=== PATIENT | male | born 1950 | race Caucasian/White ===

== ENCOUNTER 2016-11-07 08:00 | Outpatient (CLI) | payer MEDICARE | END 2016-11-07 08:01 | disposition home or self-care (01) | DX: R73.09 Other abnormal glucose (principal); E78.5 Hyperlipidemia, unspecified; Z79.899 Other long term (current) drug therapy; I10 Essential (primary) hypertension; R97.20 Elevated prostate specific antigen [PSA] ==

== ENCOUNTER 2017-01-20 13:03 | Outpatient (CLI) | payer MEDICARE | END 2017-01-20 13:04 | disposition home or self-care (01) | DX: R06.83 Snoring (principal) | CPT/HCPCS: 99213; G0463 ==

== ENCOUNTER 2017-04-30 01:07 | Emergency (ER) | payer MEDICARE ==
[2017-04-30 01:45] LABS: BASOPHILS % (AUTO) 0.4 %; EOSINOPHILS # (AUTO) 0.5 10^3/uL (0.0-0.7); EOSINOPHILS % (AUTO) 4.8 %; HGB - HEMOGLOBIN 14.5 g/dL (14.0-18.0); LYMPHOCYTES # (AUTO) 1.5 10^3/uL (1.5-3.5); LYMPHOCYTES % (AUTO) 14.7 %; MEAN CORPUSCULAR HGB CONC 33.8 g/dL (32.0-36.0); MEAN CORPUSCULAR VOLUME 88.8 fL (80.0-94.0); MONOCYTES # (AUTO) 0.4 10^3/uL (0.0-1.0); MONOCYTES % (AUTO) 4.4 %; NEUTROPHILS # (AUTO) 7.7 10^3/uL (1.5-6.6); NEUTROPHILS % (AUTO) 75.7 %; RED BLOOD COUNT 4.84 10^6/uL (4.70-6.10); RED CELL DISTRIBUTION WIDTH 12.7 % (12.0-15.0); UNCORRECTED WHITE BLOOD COUNT 10.1 x10^3/uL; WHITE BLOOD COUNT 10.1 x10^3/uL (4.8-10.8)
[2017-04-30 01:58] LABS: ALBUMIN/GLOBULIN RATIO 1.3 (1.0-2.2); BILIRUBIN,TOTAL 0.6 mg/dL (0.2-1.0); CALCIUM 9.8 mg/dL (8.5-10.3); CREATININE 0.9 mg/dL (0.6-1.2); POTASSIUM 4.3 mmol/L (3.5-5.0); TOTAL PROTEIN 7.3 g/dL (6.7-8.2)
[2017-04-30 02:42] LABS: BILIRUBIN,URINE NEGATIVE (NEGATIVE); PH,URINE 5.5 PH (5.0-7.5)
[2017-04-30 02:43] LABS: UA CHARGE (STRIP ONLY) YES; UR CULTURE IF IND NOT INDICATED
[2017-04-30] MEDS ORDERED: SIMETHICONE CHEW 80 MG TABLET PO STA (02:49)
--- NOTE | 2017-04-30 02:50 | ED Physician Documentation ---
PD HPI ABD PAIN - Stated complaint Stated Complaint: ABD BLOATING,PAIN - Chief complaint Chief Complaint: Abd Pain - History obtained from History obtained from: Patient, Family - History of Present Illness Timing - onset: Enter time (1899), Yesterday Timing - duration: Hours Timing - details: Gradual onset, Still present Quality: Cramping, Pain Location: All over / everywhere Radiation: Left flank Improved by: Laying still Worsened by: Moving, Position, Palpation Associated symptoms: Nausea, Other (diaphoresis) Similar symptoms before: Has not had sx before Recently seen: Not recently seen - Additional information Additional information: 66-year-old male was in his usual state of health today when at dinner he ate to [employer] beer floats a can of all of this and some leftover ribs. He began to have some bloating of his abdomen tightness to the abdomen and pain. He did end up with some diaphoresis associated with the pain and he was not able to control the pain his pain is now nearly resolved and he has passed gas and has had bowel movement as well.He is uncertain as to whether he has any history of lactose intolerance but he does note that he ate more ice cream than he usually does. Review of Systems Constitutional: denies: Fever Eyes: denies: Decreased vision Ears: denies: Ear pain Nose: denies: Rhinorrhea / runny nose, Congestion Throat: denies: Sore throat Cardiac: denies: Chest pain / pressure, Palpitations Respiratory: denies: Dyspnea, Cough GI: reports: Abdominal Pain, Abdominal Swelling, Nausea. denies: Vomiting, Constipation : denies: Dysuria, Frequency Skin: denies: Rash Musculoskeletal: denies: Neck pain, Back pain, Extremity pain Neurologic: denies: Generalized weakness, Focal weakness, Numbness PD PAST MEDICAL HISTORY - Past Medical History Past Medical History: Yes Cardiovascular: Hypertension, Deep vein thrombosis, Pulmonary embolism Neuro: None - Past Surgical History Past Surgical History: Yes - Allergies Allergies/Adverse Reactions: Allergies Allergy/AdvReac Type Severity Reaction Status Date / Time naproxen Allergy Anaphylaxis Verified 04/30/17 01:26 Statins Allergy Anaphylaxis Uncoded 04/30/17 01:26 - Social History Does the pt smoke?: No Smoking Status: Never smoker Does the pt drink ETOH?: No Does the pt have substance abuse?: No - Immunizations Immunizations are current?: Yes - POLST Patient has POLST: No PD ED PE NORMAL - Vitals Vital signs reviewed: Yes (hypertensive ) - General General: No acute distress, Well developed/nourished - HEENT HEENT: Atraumatic, PERRL, EOMI - Neck Neck: Supple, no meningeal sign - Cardiac Cardiac: RRR, No murmur - Respiratory Respiratory: No respiratory distress, Clear bilaterally - Abdomen Abdomen: Soft, Other (The abdomen is distended and non-tender. There are high pitched bowel sounds in the left abdomen. ) - Back Back: No CVA TTP, No spinal TTP - Derm Derm: Normal color, Warm and dry, No rash - Extremities Extremities: No deformity, No edema - Neuro Neuro: Alert and oriented X 3, No motor deficit, No sensory deficit, Normal speech - Psych Psych: Normal mood, Normal affect Results - Vitals Vitals: Vital Signs - 24 hr 04/30/17 04/30/17 01:17 02:44 Temperature 36.9 C 36.0 C L Heart Rate 64 60 Respiratory 18 16 Rate Blood Pressure 159/85 H 190/86 H O2 Saturation 100 100 Oxygen O2 Source Room air - Labs Labs: Laboratory Tests 04/30/17 04/30/17 04/30/17 01:39 01:39 02:30 WBC 10.1 RBC 4.84 Hgb 14.5 Hct 43.0 MCV 88.8 MCH 30.0 MCHC 33.8 RDW 12.7 Plt Count 216 MPV 8.0 Neut # 7.7 H Lymph # 1.5 [place] # 0.4 Eos # 0.5 Baso # 0.0 Absolute Nucleated RBC 0.00 Nucleated RBCs 0.0 Sodium 136 Potassium 4.3 Chloride 103 Carbon Dioxide 25 Anion Gap 8.0 BUN 24 H Creatinine 0.9 Estimated GFR (MDRD) 84 L Glucose 210 H Calcium 9.8 Total Bilirubin 0.6 AST 18 ALT 18 Alkaline Phosphatase 59 Total Protein 7.3 Albumin 4.1 Globulin 3.2 Albumin/Globulin Ratio 1.3 Lipase 20 L Urine Color YELLOW Urine Clarity CLEAR Urine pH 5.5 Ur Specific [place] >=1.030 H Urine Protein NEGATIVE Urine Glucose (UA) NEGATIVE Urine Ketones NEGATIVE Urine Occult Blood NEGATIVE Urine Nitrite NEGATIVE Urine Bilirubin NEGATIVE Urine Urobilinogen 0.2 (NORMAL) Ur Leukocyte Esterase NEGATIVE Ur Microscopic Review NOT INDICATED Urine Culture Comments NOT INDICATED PD MEDICAL DECISION MAKING - ED course Complexity details: reviewed old records, reviewed results, re-evaluated patient , considered differential, d/w patient, d/w family ED course: 66-year-old male with abdominal distention and bloating and gas after excessive intake of food containing both ice cream and soda as well as excessive amount of olives. The patient has had improvement in his abdominal pain while here in the emergency department and feels satisfactory to go home without imaging. I did discuss with the patient imaging to rule out bowel obstruction he is certain he does not have bowel obstruction as he has had multiple bowel movement this evening even. And he has had flatus. Departure - Departure Disposition: 01 Home, Self Care Clinical Impression: Postprandial abdominal bloating Condition: Stable Instructions: ED Gas Bloating Follow-Up: Javier Calles MD [Primary Care Provider] -
[2017-04-30 03:01] VITALS: BP 151/74
== END 2017-04-30 03:06 | disposition home or self-care (01) ==
LOC: ED 01:07
DX: R14.0 Abdominal distension (gaseous) (principal); I10 Essential (primary) hypertension; Z86.718 Personal history of other venous thrombosis and embolism; Z86.711 Personal history of pulmonary embolism
CPT/HCPCS: 36415; 80053; 81003; 83690; 85025; 99283; A9270; 81001; 87086

== ENCOUNTER 2017-11-10 07:07 | Outpatient (CLI) | payer MEDICARE ==
[2017-11-10 13:14] LABS: HB2 TOTAL 16.7 g/dL; HEMOGLOBIN A1C 0.73 g/dL; HEMOGLOBIN A1C % 6.2 % (4.6-6.2)
[2017-11-10 13:19] LABS: ALBUMIN 4.1 g/dL (3.2-5.5); ALBUMIN/GLOBULIN RATIO 1.3 (1.0-2.2); ALKALINE PHOSPHATASE 46 IU/L (42-121); ALT ALANINE AMINOTRANSFERASE 21 IU/L (10-60); AST ASPARTATE AMINOTRANSFERASE 24 IU/L (10-42); BUN - BLOOD UREA NITROGEN 18 mg/dL (6-20); CALCIUM 9.3 mg/dL (8.5-10.3); CARBON DIOXIDE - CO2 24 mmol/L (21-32); CHLORIDE 103 mmol/L (101-111); CHOL/HDL RATIO 5.5 (<5.0); CHOLESTEROL 218 mg/dL; CREATININE 0.9 mg/dL (0.6-1.2); GFR - MDRD 84 (>89); GLUCOSE 129 mg/dL (70-100); HDL CHOLESTEROL 40 mg/dL; LDL CHOLESTEROL,CALCULATED 150 mg/dL; LDL/HDL RATIO 3.8 (<3.6); SODIUM 133 mmol/L (135-145); TOTAL PROTEIN 7.3 g/dL (6.7-8.2); VLDL CHOLESTEROL 28 mg/dL
[2017-11-10 13:33] LABS: BASOPHILS % (AUTO) 0.7 %; EOSINOPHILS # (AUTO) 0.7 10^3/uL (0.0-0.7); EOSINOPHILS % (AUTO) 9.1 %; HGB - HEMOGLOBIN 15.9 g/dL (14.0-18.0); LYMPHOCYTES # (AUTO) 1.7 10^3/uL (1.5-3.5); LYMPHOCYTES % (AUTO) 22.2 %; MEAN CORPUSCULAR HEMOGLOBIN 30.2 pg (27.0-31.0); MEAN CORPUSCULAR HGB CONC 33.4 g/dL (32.0-36.0); MEAN CORPUSCULAR VOLUME 90.4 fL (80.0-94.0); MEAN PLATELET VOLUME 9.4 fL (7.4-11.4); MONOCYTES # (AUTO) 0.4 10^3/uL (0.0-1.0); MONOCYTES % (AUTO) 5.7 %; NEUTROPHILS # (AUTO) 4.7 10^3/uL (1.5-6.6); NEUTROPHILS % (AUTO) 62.3 %; PLT - PLATELET COUNT 115 10^3/uL (130-450); RED BLOOD COUNT 5.25 10^6/uL (4.70-6.10); RED CELL DISTRIBUTION WIDTH 12.9 % (12.0-15.0); WHITE BLOOD COUNT 7.5 x10^3/uL (4.8-10.8)
== END 2017-11-10 07:08 | disposition home or self-care (01) ==
LOC: LAB.F 07:07
PROVIDERS: ATTEND Internal Medicine
DX: E88.81 Metabolic syndrome and other insulin resistance (principal); I10 Essential (primary) hypertension; E78.5 Hyperlipidemia, unspecified; E66.9 Obesity, unspecified; Z12.5 Encounter for screening for malignant neoplasm of prostate
CPT/HCPCS: 36415; 80053; 80061; 83036; 84443; 85025; G0103; 84153

== ENCOUNTER 2018-05-12 07:09 | Outpatient (CLI) | payer MEDICARE ==
[2018-05-12 12:22] LABS: HB2 TOTAL 15.5 g/dL; HEMOGLOBIN A1C 0.77 g/dL; HEMOGLOBIN A1C % 6.7 % (4.6-6.2)
== END 2018-05-12 07:10 | disposition home or self-care (01) ==
LOC: LAB.F 07:09
PROVIDERS: ATTEND Internal Medicine
DX: E88.81 Metabolic syndrome and other insulin resistance (principal)
CPT/HCPCS: 36415; 82947; 83036

== ENCOUNTER 2018-10-06 08:41 | Outpatient (CLI) | payer MEDICARE ==
[2018-10-06 11:47] LABS: HB2 TOTAL 15.9 g/dL; HEMOGLOBIN A1C 0.74 g/dL; HEMOGLOBIN A1C % 6.4 % (4.6-6.2)
== END 2018-10-06 08:42 | disposition home or self-care (01) ==
LOC: LAB.F 08:41
PROVIDERS: ATTEND Internal Medicine
DX: E88.81 Metabolic syndrome and other insulin resistance (principal)
CPT/HCPCS: 36415; 83036

== ENCOUNTER 2018-12-09 07:16 | Outpatient (CLI) | payer MEDICARE ==
[2018-12-09 10:43] LABS: BASOPHILS # (AUTO) 0.1 10^3/uL (0.0-0.1); BASOPHILS % (AUTO) 1.7 %; EOSINOPHILS # (AUTO) 0.4 10^3/uL (0.0-0.7); HGB - HEMOGLOBIN 14.6 g/dL (14.0-18.0); LYMPHOCYTES # (AUTO) 1.4 10^3/uL (1.5-3.5); LYMPHOCYTES % (AUTO) 23.6 %; MEAN CORPUSCULAR HEMOGLOBIN 29.9 pg (27.0-31.0); MEAN CORPUSCULAR HGB CONC 35.7 g/dL (32.0-36.0); MEAN CORPUSCULAR VOLUME 83.7 fL (80.0-94.0); MEAN PLATELET VOLUME 8.3 fL (7.4-11.4); MONOCYTES # (AUTO) 0.2 10^3/uL (0.0-1.0); NEUTROPHILS # (AUTO) 3.9 10^3/uL (1.5-6.6); NEUTROPHILS % (AUTO) 63.7 %; PLT - PLATELET COUNT 203 10^3/uL (130-450); RED BLOOD COUNT 4.87 10^6/uL (4.70-6.10); RED CELL DISTRIBUTION WIDTH 13.6 % (12.0-15.0); WHITE BLOOD COUNT 6.1 x10^3/uL (4.8-10.8)
[2018-12-09 10:59] LABS: ALBUMIN 3.8 g/dL (3.2-5.5); ALBUMIN/GLOBULIN RATIO 1.2 (1.0-2.2); ALKALINE PHOSPHATASE 58 IU/L (42-121); ALT ALANINE AMINOTRANSFERASE 20 IU/L (10-60); AST ASPARTATE AMINOTRANSFERASE 21 IU/L (10-42); BILIRUBIN,TOTAL 0.8 mg/dL (0.2-1.0); BUN - BLOOD UREA NITROGEN 21 mg/dL (6-20); CALCIUM 9.2 mg/dL (8.5-10.3); CARBON DIOXIDE - CO2 23 mmol/L (21-32); CHLORIDE 107 mmol/L (101-111); CHOL/HDL RATIO 4.4 (<5.0); CHOLESTEROL 186 mg/dL; CREATININE 0.8 mg/dL (0.6-1.2); GFR - MDRD 96 (>89); GLUCOSE 128 mg/dL (70-100); HDL CHOLESTEROL 42 mg/dL; LDL CHOLESTEROL,CALCULATED 126 mg/dL; SODIUM 136 mmol/L (135-145); TOTAL PROTEIN 6.9 g/dL (6.7-8.2); VLDL CHOLESTEROL 18 mg/dL
[2018-12-09 11:54] LABS: HB2 TOTAL 15.8 g/dL; HEMOGLOBIN A1C 0.73 g/dL; HEMOGLOBIN A1C % 6.4 % (4.6-6.2)
== END 2018-12-09 07:17 | disposition home or self-care (01) ==
LOC: LAB.F 07:16
PROVIDERS: ATTEND Internal Medicine
DX: K81.2 Acute cholecystitis with chronic cholecystitis (principal); I26.99 Other pulmonary embolism without acute cor pulmonale; E88.81 Metabolic syndrome and other insulin resistance; I10 Essential (primary) hypertension; E78.5 Hyperlipidemia, unspecified; Z79.899 Other long term (current) drug therapy; Z12.5 Encounter for screening for malignant neoplasm of prostate
CPT/HCPCS: 36415; 80053; 80061; 83036; 84443; 85025; G0103; 83721; 84153

== ENCOUNTER 2019-10-12 07:07 | Outpatient (CLI) | payer MEDICARE ==
[2019-10-12 10:12] LABS: BASOPHILS % (AUTO) 0.5 %; EOSINOPHILS # (AUTO) 0.4 10^3/uL (0.0-0.7); EOSINOPHILS % (AUTO) 5.9 %; HGB - HEMOGLOBIN 15.3 g/dL (14.0-18.0); LYMPHOCYTES # (AUTO) 1.9 10^3/uL (1.5-3.5); LYMPHOCYTES % (AUTO) 30.8 %; MEAN CORPUSCULAR HEMOGLOBIN 28.9 pg (27.0-31.0); MEAN CORPUSCULAR HGB CONC 31.9 g/dL (32.0-36.0); MEAN CORPUSCULAR VOLUME 90.7 fL (80.0-94.0); MEAN PLATELET VOLUME 10.7 fL (7.4-11.4); MONOCYTES # (AUTO) 0.4 10^3/uL (0.0-1.0); MONOCYTES % (AUTO) 6.4 %; NEUTROPHILS # (AUTO) 3.5 10^3/uL (1.5-6.6); NEUTROPHILS % (AUTO) 56.1 %; PLT - PLATELET COUNT 214 10^3/uL (130-450); RED BLOOD COUNT 5.29 10^6/uL (4.70-6.10); RED CELL DISTRIBUTION WIDTH 12.8 % (12.0-15.0); WHITE BLOOD COUNT 6.1 x10^3/uL (4.8-10.8)
[2019-10-12 10:32] LABS: ALBUMIN 4.2 g/dL (3.2-5.5); ALBUMIN/GLOBULIN RATIO 1.2 (1.0-2.2); ALKALINE PHOSPHATASE 58 IU/L (42-121); ALT ALANINE AMINOTRANSFERASE 21 IU/L (10-60); AST ASPARTATE AMINOTRANSFERASE 20 IU/L (10-42); BUN - BLOOD UREA NITROGEN 21 mg/dL (6-20); CALCIUM 9.5 mg/dL (8.5-10.3); CARBON DIOXIDE - CO2 25 mmol/L (21-32); CHLORIDE 106 mmol/L (101-111); CHOL/HDL RATIO 4.4 (<5.0); CHOLESTEROL 190 mg/dL; CREATININE 0.9 mg/dL (0.6-1.2); GFR - MDRD 83 (>89); GLUCOSE 124 mg/dL (70-100); HDL CHOLESTEROL 43 mg/dL; LDL CHOLESTEROL,CALCULATED 130 mg/dL; SODIUM 138 mmol/L (135-145); TOTAL PROTEIN 7.7 g/dL (6.7-8.2); VLDL CHOLESTEROL 17 mg/dL
[2019-10-12 10:37] LABS: HB2 TOTAL 15.7 g/dL; HEMOGLOBIN A1C 0.74 g/dL; HEMOGLOBIN A1C % 6.5 % (4.6-6.2)
--- NOTE | 2019-10-12 17:57 | XRAY Report ---
Reason: SHOULDER PAIN, RIGHT Procedure Date: 10/12/2019 Accession Number: [id number] / [id number] Procedure: XRS - Shoulder 2 View RT CPT Code: Final Report FULL RESULT: EXAM: RIGHT SHOULDER RADIOGRAPHY EXAM DATE: 10/12/2019 07:31 AM. CLINICAL HISTORY: SHOULDER PAIN, RIGHT. COMPARISON: None. TECHNIQUE: 2 views. FINDINGS: Bones: Normal. No fracture or bone lesion. Joints: The glenohumeral and acromioclavicular joints are normal. Soft tissues: The visualized hemithorax is unremarkable. No soft tissue swelling. IMPRESSION: Negative shoulder radiography. [facility]
== END 2019-10-12 07:08 | disposition home or self-care (01) ==
LOC: DI.S 07:07
PROVIDERS: ATTEND Family Medicine
DX: M25.511 Pain in right shoulder (principal); I10 Essential (primary) hypertension; E78.5 Hyperlipidemia, unspecified; I26.99 Other pulmonary embolism without acute cor pulmonale; Z12.5 Encounter for screening for malignant neoplasm of prostate; G47.33 Obstructive sleep apnea (adult) (pediatric); E66.9 Obesity, unspecified; R37 Sexual dysfunction, unspecified
CPT/HCPCS: 36415; 80053; 80061; 83036; 83721; 85025

== ENCOUNTER 2020-06-07 09:31 | Outpatient (CLI) | payer MEDICARE ==
--- NOTE | 2020-06-07 12:28 | XRAY Report ---
PROCEDURE: Knee 3 View RT INDICATIONS: KNEE EFFUSION, RIGHT TECHNIQUE: 3 views of the right knee(s) were acquired. COMPARISON: None. FINDINGS: Bones: No fractures or dislocations. No suspicious bony lesions. Moderate medial as well as patello femoral degenerative narrowing. Soft tissues: Moderate joint effusion. No suspicious soft tissue calcifications. IMPRESSION: Moderate effusion. No visualized acute fracture or dislocation. However, occult injury c annot be excluded. Recommend short interval imaging follow-up in 7-10 days as clinically indicated fo r additional evaluation. Reviewed by: Kely Kemp MD on 06/07/2020 12:27 PM PDT Approved by: Kely Kemp MD on 06/07/2020 12:27 PM PDT Station ID: [id number]
== END 2020-06-07 09:32 | disposition home or self-care (01) ==
LOC: DI.S 09:31
PROVIDERS: ATTEND Family Medicine
DX: M25.461 Effusion, right knee (principal)

== ENCOUNTER 2020-10-10 07:04 | Outpatient (CLI) | payer MEDICARE ==
[2020-10-10 15:41] LABS: BASOPHILS % (AUTO) 0.5 %; EOSINOPHILS # (AUTO) 0.2 10^3/uL (0.0-0.7); EOSINOPHILS % (AUTO) 3.1 %; HGB - HEMOGLOBIN 14.7 g/dL (14.0-18.0); LYMPHOCYTES # (AUTO) 2.1 10^3/uL (1.5-3.5); LYMPHOCYTES % (AUTO) 28.6 %; MEAN CORPUSCULAR HEMOGLOBIN 30.1 pg (27.0-31.0); MEAN CORPUSCULAR HGB CONC 31.4 g/dL (32.0-36.0); MEAN CORPUSCULAR VOLUME 95.7 fL (80.0-94.0); MEAN PLATELET VOLUME 10.2 fL (7.4-11.4); MONOCYTES # (AUTO) 0.4 10^3/uL (0.0-1.0); MONOCYTES % (AUTO) 5.9 %; NEUTROPHILS # (AUTO) 4.5 10^3/uL (1.5-6.6); NEUTROPHILS % (AUTO) 61.2 %; PLT - PLATELET COUNT 202 10^3/uL (130-450); RED BLOOD COUNT 4.89 10^6/uL (4.70-6.10); RED CELL DISTRIBUTION WIDTH 13.1 % (12.0-15.0); WHITE BLOOD COUNT 7.3 x10^3/uL (4.8-10.8)
[2020-10-10 16:02] LABS: ALBUMIN 3.9 g/dL (3.2-5.5); ALBUMIN/GLOBULIN RATIO 1.3 (1.0-2.2); ALKALINE PHOSPHATASE 45 IU/L (42-121); ALT ALANINE AMINOTRANSFERASE 19 IU/L (10-60); AST ASPARTATE AMINOTRANSFERASE 15 IU/L (10-42); BILIRUBIN,TOTAL 1.3 mg/dL (0.2-1.0); BUN - BLOOD UREA NITROGEN 20 mg/dL (6-20); CALCIUM 9.5 mg/dL (8.5-10.3); CARBON DIOXIDE - CO2 24 mmol/L (21-32); CHLORIDE 105 mmol/L (101-111); CHOL/HDL RATIO 4.8 (<5.0); CHOLESTEROL 241 mg/dL; CREATININE 0.8 mg/dL (0.6-1.2); GLUCOSE 142 mg/dL (70-100); HDL CHOLESTEROL 50 mg/dL; LDL CHOLESTEROL,CALCULATED 170 mg/dL; LDL/HDL RATIO 3.4 (<3.6); SODIUM 138 mmol/L (135-145); TOTAL PROTEIN 6.9 g/dL (6.7-8.2); VLDL CHOLESTEROL 21 mg/dL
[2020-10-10 18:41] LABS: HEMOGLOBIN A1c% 6.5 % (4.27-6.07)
== END 2020-10-10 07:05 | disposition home or self-care (01) ==
LOC: LAB.S 07:04
PROVIDERS: ATTEND Family Medicine
DX: M25.511 Pain in right shoulder (principal); I26.99 Other pulmonary embolism without acute cor pulmonale; E88.81 Metabolic syndrome and other insulin resistance; I10 Essential (primary) hypertension; E78.5 Hyperlipidemia, unspecified; R97.20 Elevated prostate specific antigen [PSA]; G47.33 Obstructive sleep apnea (adult) (pediatric); E66.9 Obesity, unspecified; Z68.39 Body mass index [BMI] 39.0-39.9, adult
CPT/HCPCS: 36415; 80053; 80061; 83036; 84443; 85025; G0103; 83721; 84153

== ENCOUNTER 2021-03-01 15:30 | Outpatient (CLI) | payer MEDICARE ==
--- NOTE | 2021-03-01 16:24 | XRAY Report ---
PROCEDURE: Foot 3 View RT INDICATIONS: RIGHT FOOT INFECTION TECHNIQUE: 3 views of the foot were acquired. COMPARISON: None FINDINGS: Bones: No fractures or dislocations. Well-defined plantar calcaneal enthesophyte is seen. Mild firs t MTP joint and first through fifth interphalangeal joint osteoarthritic changes are seen. No gross b shanae erosive changes. No suspicious bony lesions. Soft tissues: No tibiotalar joint effusion. Achilles tendon appears normal. IMPRESSION: Mild forefoot joint osteoarthritis. Well-defined plantar calcaneal enthesophyte. No fracture or dislo cation. No radiographic evidence of osteomyelitis. Reviewed by: Hebert Tracey MD on 03/01/2021 4:22 PM PDT Approved by: Hebert Tracey MD on 03/01/2021 4:22 PM PDT Station ID: [id number]
== END 2021-03-01 23:59 | disposition home or self-care (01) ==
LOC: DI.S 15:30
PROVIDERS: ATTEND Physician Assistant
DX: M19.071 Primary osteoarthritis, right ankle and foot (principal); M77.31 Calcaneal spur, right foot

== ENCOUNTER 2021-03-01 16:26 | Emergency (ER) | payer MEDICARE ==
[2021-03-01] MEDS ORDERED: SULFAMETH/TRIMETH DS 800/160 MG TABLET PO STA (16:58)
[2021-03-01] MEDS ORDERED: ACETAMINOPHEN 325 MG TABLET PO STA (16:58)
[2021-03-01] MEDS ORDERED: BACITRACIN ZINC OINT 1 PACKET TOP STA (17:35)
--- NOTE | 2021-03-01 17:44 | ED Physician Documentation ---
PD HPI SKIN - Stated complaint Stated Complaint: RT FOOT PX - Chief complaint Chief Complaint: Ext Problem - History obtained from History obtained from: Patient - History of Present Illness Timing - onset: How many days ago (few) Timing - duration: Days (he has had callous on plantar first MT head area and prior wart that had been frozen. He noted pain and swelling under the callous the past few days. No drainage. Some redness surrounding the area.) Timing - details: Gradual onset Location: RLE (plantar right foot at first MT head area.) Review of Systems Constitutional: denies: Fever, Chills Nose: denies: Rhinorrhea / runny nose, Congestion Throat: denies: Sore throat Respiratory: denies: Cough Neurologic: reports: Numbness (some numbness chronic due to neuropathy.). denies: Focal weakness PD PAST MEDICAL HISTORY - Past Medical History Past Medical History: No Cardiovascular: Hypertension, Deep vein thrombosis, Pulmonary embolism Endocrine/Autoimmune: Type 2 diabetes - Past Surgical History Past Surgical History: Yes General: Cholecystectomy - Present Medications Home Medications: Ambulatory Orders Medication Instructions Recorded Confirmed Mupirocin Calcium [Mupirocin] 1 applic TP TID #15 gm 03/01/21 Rivaroxaban [Xarelto] 20 mg PO DAILY 03/01/21 03/01/21 Sulfamethox/Trimeth 800/160 1 each PO BID #14 tablet 03/01/21 [Bactrim Ds 800/160] - Allergies Allergies/Adverse Reactions: Allergies Allergy/AdvReac Type Severity Reaction Status Date / Time naproxen Allergy Anaphylaxis Verified 03/01/21 16:31 Statins Allergy Anaphylaxis Uncoded 03/01/21 16:31 - Social History Does the pt smoke?: No Smoking Status: Never smoker Does the pt drink ETOH?: Yes Does the pt have substance abuse?: No - Immunizations Immunizations are current?: Yes - POLST Patient has POLST: No PD ED PE NORMAL - Vitals Vital signs reviewed: Yes - General General: Alert and oriented X 3, No acute distress, Well developed/nourished - Derm Derm: Warm and dry. No: Normal color (redness around the calous site at plantar and medial side of base of great toe. ) - Extremities Extremities: Other (right foot plantar first MT head area with thickened hard skin and central rounded slightly raised spot c/w wart and surrounding callous. There is tenderness and fluctuance under it. ) - Neuro Neuro: No motor deficit, No sensory deficit, Other (Good color and cap refill of toes. ) Results - Vitals Vitals: Vital Signs - 24 hr 03/01/21 03/01/21 16:31 18:00 Temperature 36.5 C 36.8 C Heart Rate 86 80 Respiratory 16 15 Rate Blood Pressure 152/87 H 138/83 H O2 Saturation 100 100 Oxygen O2 Source Room air - Labs Labs: Microbiology 03/01/21 17:25 Wound Culture - Preliminary Foot - Right Procedures - Abscess I&D (location) right plantar foot Preparation: Lidocaine 1%. No: Confirmed with ultrasound Incision: Incised with scalpel (drainage of purulence with incision, and then I could see that the whole of the callous (about 2 cm diameter) was lifted from underlying layer and thick skin, so I excised the rounded area of skin to expose the subcut layer under. This is pink and appears good without erosion.), Irrigated PD MEDICAL DECISION MAKING - ED course Complexity details: considered differential (there is skin callous layer with purulence under, but the muscle/tissue layer is appearing pink. No deeper erosion. I unroofed the infection and removed 2 cm rounded area of the callous tissue. ), d/w patient Departure - Departure Disposition: 01 Home, Self Care Clinical Impression: Foot abscess, right, Foot callus Condition: Stable Record reviewed to determine appropriate education?: Yes Instructions: ED Abscess IandD Follow-Up: Diego Muñoz MD [Primary Care Provider] - Prescriptions: Sulfamethox/Trimeth 800/160 [Bactrim Ds 800/160] 1 each PO BID #14 tablet Mupirocin Calcium [Mupirocin] 1 applic TP TID #15 gm Comments: Clean the wound with soap and water or just soak it in water twice daily and apply mupirocin antibiotic ointment and then dressing and wrap. Also take Bactrim oral antibiotic twice daily. We did do a culture of the foot and this should result in typically 2 days and we will call you if we need to amend the antibiotics based on that. Follow-up with your primary care or the walk-in clinic on Thursday or Thursday for a recheck. This is going to be a slow healing process of that wound in the may possibly even refer you to the wound care clinic for sequential evaluations. Tylenol if needed for pains. Return if worsening. Discharge Date/Time: 03/01/21 18:02
[2021-03-01 18:01] VITALS: BP 138/83
== END 2021-03-01 18:02 | disposition home or self-care (01) ==
LOC: ED 16:26
DX: L02.611 Cutaneous abscess of right foot (principal); L84 Corns and callosities; E11.42 Type 2 diabetes mellitus with diabetic polyneuropathy; M19.071 Primary osteoarthritis, right ankle and foot; M77.31 Calcaneal spur, right foot
CPT/HCPCS: 10060; 73630; 87070; 87077; 87181; 87205; 99283; A9270

== ENCOUNTER 2021-06-17 08:00 | Outpatient (CLI) | payer MEDICARE ==
[2021-06-17 18:43] LABS: CREATININE 0.8 mg/dL (0.6-1.2); POTASSIUM 4.4 mmol/L (3.5-5.0)
[2021-06-17 19:58] LABS: ESTIMATED AVERAGE GLUCOSE 137 mg/dL (70-100); HEMOGLOBIN A1c% 6.4 % (4.27-6.07)
== END 2021-06-17 23:59 | disposition home or self-care (01) ==
LOC: LAB.WCP 08:00
PROVIDERS: ATTEND Family Medicine
DX: I10 Essential (primary) hypertension (principal); R73.03 Prediabetes; I26.99 Other pulmonary embolism without acute cor pulmonale; E66.9 Obesity, unspecified
CPT/HCPCS: 36415; 80048; 83036

== ENCOUNTER 2021-08-22 08:00 | Outpatient (CLI) | payer MEDICARE | END 2021-08-22 23:59 | disposition home or self-care (01) | LOC: LAB 08:00 | PROVIDERS: ATTEND Emergency Medicine | DX: L02.611 Cutaneous abscess of right foot (principal) | CPT/HCPCS: 87070; 87205 ==

== ENCOUNTER 2022-05-14 08:29 | Outpatient (CLI) | payer MEDICARE ==
[2022-05-14 14:34] LABS: BASOPHILS % (AUTO) 0.8 %; EOSINOPHILS # (AUTO) 0.2 10^3/uL (0.0-0.7); EOSINOPHILS % (AUTO) 4.4 %; HCT - HEMATOCRIT 46.1 % (42.0-52.0); HGB - HEMOGLOBIN 15.4 g/dL (14.0-18.0); LYMPHOCYTES # (AUTO) 1.6 10^3/uL (1.5-3.5); LYMPHOCYTES % (AUTO) 30.5 %; MEAN CORPUSCULAR HEMOGLOBIN 30.1 pg (27.0-31.0); MEAN CORPUSCULAR HGB CONC 33.4 g/dL (32.0-36.0); MEAN PLATELET VOLUME 10.6 fL (7.4-11.4); MONOCYTES # (AUTO) 0.4 10^3/uL (0.0-1.0); NEUTROPHILS % (AUTO) 56.1 %; PLT - PLATELET COUNT 194 10^3/uL (130-450); RED BLOOD COUNT 5.12 10^6/uL (4.70-6.10); RED CELL DISTRIBUTION WIDTH 12.6 % (12.0-15.0); WHITE BLOOD COUNT 5.3 x10^3/uL (4.8-10.8)
[2022-05-14 15:05] LABS: ESTIMATED AVERAGE GLUCOSE 143 mg/dL (70-100); HEMOGLOBIN A1c% 6.6 % (4.27-6.07)
[2022-05-14 15:17] LABS: THYROID STIMULATING HORMONE 3.06 uIU/mL (0.34-5.60)
[2022-05-14 15:18] LABS: ALBUMIN 4.1 g/dL (3.2-5.5); ALBUMIN/GLOBULIN RATIO 1.3 (1.0-2.2); ALKALINE PHOSPHATASE 51 IU/L (42-121); ALT ALANINE AMINOTRANSFERASE 23 IU/L (10-60); AST ASPARTATE AMINOTRANSFERASE 22 IU/L (10-42); BILIRUBIN,TOTAL 1.2 mg/dL (0.2-1.0); BUN - BLOOD UREA NITROGEN 18 mg/dL (6-20); CALCIUM 9.4 mg/dL (8.5-10.3); CARBON DIOXIDE - CO2 23 mmol/L (21-32); CHLORIDE 103 mmol/L (101-111); CHOL/HDL RATIO 5.2 (<5.0); CHOLESTEROL 214 mg/dL; CREATININE 0.9 mg/dL (0.6-1.2); GFR - MDRD 83 (>89); GLUCOSE 152 mg/dL (70-100); HDL CHOLESTEROL 41 mg/dL; LDL CHOLESTEROL,CALCULATED 156 mg/dL; LDL/HDL RATIO 3.8 (<3.6); POTASSIUM 4.1 mmol/L (3.5-5.0); SODIUM 133 mmol/L (135-145); TOTAL PROTEIN 7.3 g/dL (6.7-8.2); TRIGLYCERIDES 84 mg/dL; VLDL CHOLESTEROL 17 mg/dL
== END 2022-05-14 08:30 | disposition home or self-care (01) ==
LOC: LAB.S 08:29
PROVIDERS: ATTEND Family Medicine
DX: I10 Essential (primary) hypertension (principal); E66.01 Morbid (severe) obesity due to excess calories; I26.99 Other pulmonary embolism without acute cor pulmonale; E88.81 Metabolic syndrome and other insulin resistance; E78.5 Hyperlipidemia, unspecified
CPT/HCPCS: 36415; 80053; 80061; 83036; 83721; 84443; 85025

== ENCOUNTER 2024-02-02 08:00 | Outpatient (CLI) | payer MEDICARE | END 2024-02-02 08:01 | disposition home or self-care (01) | LOC: LAB.S 08:00 | PROVIDERS: ATTEND Physician Assistant Medical | DX: R05.1 Acute cough (principal) ==

== ENCOUNTER 2024-02-02 08:00 | Outpatient (CLI) | payer MEDICARE ==
--- NOTE | 2024-02-02 14:29 | XRAY Report ---
PROCEDURE: Chest 2V INDICATIONS: ACUTE COUGH TECHNIQUE: 2 views of the chest were acquired. COMPARISON: None. FINDINGS: Surgical changes and devices: None. Lungs and pleura: No pleural effusions or pneumothorax. Lungs are clear. Mediastinum: Mediastinal contours appear normal. Heart size is enlarged. Bones and chest wall: No suspicious bony lesions. Overlying soft tissues appear unremarkable. IMPRESSION: No acute cardiopulmonary process. Reviewed by: Kely Kemp MD on 02/02/2024 2:28 PM PDT Approved by: Kely Kemp MD on 02/02/2024 2:28 PM PDT Station ID: [id number]
== END 2024-02-02 23:59 | disposition home or self-care (01) ==
LOC: DI.S 08:00
PROVIDERS: ATTEND Physician Assistant Medical
DX: R05.1 Acute cough (principal); R06.2 Wheezing

== ENCOUNTER 2024-02-10 08:00 | Outpatient (CLI) | payer MEDICARE ==
--- NOTE | 2024-02-10 16:14 | XRAY Report ---
PROCEDURE: Ribs w/PA Chest 3+V RT INDICATIONS: CHEST WALL PAIN TECHNIQUE: 2 views of the ribs were acquired, along with a single view chest. COMPARISON: Chest x-ray 02/02/2024 FINDINGS: Surgical changes and devices: None. Bones and chest wall: No fractures or dislocations. No suspicious bony lesions. Overlying soft tis sues appear unremarkable. Lungs and pleura: No pleural effusions or pneumothorax. Lungs appear clear. Mediastinum: Mediastinal contours appear normal. Heart size is normal. IMPRESSION: No visualized acute fracture or dislocation. However, occult injury cannot be excluded. Recommend ethel rt interval imaging follow-up in 7-10 days as clinically indicated for additional evaluation. Reviewed by: Kely Kemp MD on 02/10/2024 4:13 PM PDT Approved by: Kely Kemp MD on 02/10/2024 4:13 PM PDT Station ID: [id number]
== END 2024-02-10 23:59 | disposition home or self-care (01) ==
LOC: DI.S 08:00
PROVIDERS: ATTEND Emergency Medicine
DX: R07.89 Other chest pain (principal)

== ENCOUNTER 2024-02-15 10:57 | Outpatient (CLI) | payer MEDICARE ==
[2024-02-15 14:49] LABS: BASOPHILS % (AUTO) 0.6 %; EOSINOPHILS # (AUTO) 0.2 10^3/uL (0.0-0.7); EOSINOPHILS % (AUTO) 2.6 %; HCT - HEMATOCRIT 43.4 % (42.0-52.0); HGB - HEMOGLOBIN 14.5 g/dL (14.0-18.0); LYMPHOCYTES % (AUTO) 27.7 %; MEAN CORPUSCULAR HEMOGLOBIN 30.5 pg (27.0-31.0); MEAN CORPUSCULAR HGB CONC 33.4 g/dL (32.0-36.0); MEAN CORPUSCULAR VOLUME 91.4 fL (80.0-94.0); MEAN PLATELET VOLUME 9.9 fL (7.4-11.4); MONOCYTES # (AUTO) 0.5 10^3/uL (0.0-1.0); MONOCYTES % (AUTO) 6.4 %; NEUTROPHILS # (AUTO) 4.4 10^3/uL (1.5-6.6); NEUTROPHILS % (AUTO) 62.3 %; PLT - PLATELET COUNT 250 10^3/uL (130-450); RED BLOOD COUNT 4.75 10^6/uL (4.70-6.10)
[2024-02-15 15:22] LABS: ALBUMIN 4.1 g/dL (3.2-5.5); ALBUMIN/GLOBULIN RATIO 1.4 (1.0-2.2); ALKALINE PHOSPHATASE 51 IU/L (42-121); ALT ALANINE AMINOTRANSFERASE 26 IU/L (10-60); AST ASPARTATE AMINOTRANSFERASE 21 IU/L (10-42); BILIRUBIN,TOTAL 0.8 mg/dL (0.2-1.0); BUN - BLOOD UREA NITROGEN 16 mg/dL (6-20); CALCIUM 10.1 mg/dL (8.5-10.3); CARBON DIOXIDE - CO2 27 mmol/L (21-32); CHLORIDE 104 mmol/L (101-111); CHOLESTEROL 203 mg/dL; CREATININE 0.9 mg/dL (0.6-1.3); GFR - MDRD 82 (>89); GLUCOSE 134 mg/dL (74-104); HDL CHOLESTEROL 41 mg/dL; LDL CHOLESTEROL,CALCULATED 142 mg/dL; LDL/HDL RATIO 3.5 (<3.6); POTASSIUM 4.4 mmol/L (3.5-4.5); SODIUM 135 mmol/L (135-145); THYROID STIMULATING HORMONE 2.85 uIU/mL (0.34-5.60); TOTAL PROTEIN 7.1 g/dL (6.4-8.9); TRIGLYCERIDES 101 mg/dL (48-352); VLDL CHOLESTEROL 20 mg/dL
== END 2024-02-15 10:58 | disposition home or self-care (01) ==
LOC: LAB.S 10:57
PROVIDERS: ATTEND Family Medicine
DX: Z12.5 Encounter for screening for malignant neoplasm of prostate (principal); E11.9 Type 2 diabetes mellitus without complications; E66.01 Morbid (severe) obesity due to excess calories; Z68.41 Body mass index [BMI] 40.0-44.9, adult; R37 Sexual dysfunction, unspecified; I10 Essential (primary) hypertension; D12.6 Benign neoplasm of colon, unspecified
CPT/HCPCS: 36415; 80053; 80061; 84443; 85025; G0103; 83721; 84153

== ENCOUNTER 2024-06-11 07:00 | Outpatient (CLI) | payer MEDICARE | END 2024-06-11 23:59 | disposition home or self-care (01) | LOC: LAB.S 07:00 | PROVIDERS: ATTEND Emergency Medicine | DX: L02.611 Cutaneous abscess of right foot (principal) | CPT/HCPCS: 87070; 87077; 87205 ==

== ENCOUNTER 2024-06-24 06:58 | Outpatient (CLI) | payer MEDICARE ==
[2024-06-24 15:20] LABS: BASOPHILS % (AUTO) 0.8 %; EOSINOPHILS # (AUTO) 0.2 10^3/uL (0.0-0.7); EOSINOPHILS % (AUTO) 3.9 %; HCT - HEMATOCRIT 45.2 % (42.0-52.0); HGB - HEMOGLOBIN 14.6 g/dL (14.0-18.0); LYMPHOCYTES # (AUTO) 1.9 10^3/uL (1.5-3.5); LYMPHOCYTES % (AUTO) 37.1 %; MEAN CORPUSCULAR HEMOGLOBIN 30.2 pg (27.0-31.0); MEAN CORPUSCULAR HGB CONC 32.3 g/dL (32.0-36.0); MEAN CORPUSCULAR VOLUME 93.4 fL (80.0-94.0); MEAN PLATELET VOLUME 10.4 fL (7.4-11.4); MONOCYTES # (AUTO) 0.4 10^3/uL (0.0-1.0); MONOCYTES % (AUTO) 6.8 %; NEUTROPHILS # (AUTO) 2.6 10^3/uL (1.5-6.6); NEUTROPHILS % (AUTO) 51.2 %; PLT - PLATELET COUNT 229 10^3/uL (130-450); RED BLOOD COUNT 4.84 10^6/uL (4.70-6.10); RED CELL DISTRIBUTION WIDTH 12.9 % (12.0-15.0); WHITE BLOOD COUNT 5.2 x10^3/uL (4.8-10.8)
[2024-06-24 16:04] LABS: CRP - C-REACTIVE PROTEIN < 0.5 mg/dL (<0.5)
[2024-06-24 16:10] LABS: ALBUMIN 3.9 g/dL (3.2-5.5); ALBUMIN/GLOBULIN RATIO 1.4 (1.0-2.2); ALKALINE PHOSPHATASE 54 IU/L (42-121); ALT ALANINE AMINOTRANSFERASE 19 IU/L (10-60); AST ASPARTATE AMINOTRANSFERASE 17 IU/L (10-42); BILIRUBIN,TOTAL 0.6 mg/dL (0.2-1.0); BUN - BLOOD UREA NITROGEN 16 mg/dL (6-20); CALCIUM 9.2 mg/dL (8.5-10.3); CARBON DIOXIDE - CO2 21 mmol/L (21-32); CHLORIDE 106 mmol/L (101-111); CREATININE 0.7 mg/dL (0.6-1.3); GFR - MDRD 110 (>89); GLUCOSE 140 mg/dL (74-104); POTASSIUM 4.5 mmol/L (3.5-4.5); SODIUM 134 mmol/L (135-145); TOTAL PROTEIN 6.6 g/dL (6.4-8.9)
[2024-06-24 21:31] LABS: ESTIMATED AVERAGE GLUCOSE 148 mg/dL (70-100); HEMOGLOBIN A1c% 6.8 % (4.27-6.07)
== END 2024-06-24 06:59 | disposition home or self-care (01) ==
LOC: LAB.S 06:58
PROVIDERS: ATTEND Registered Nurse
DX: L03.115 Cellulitis of right lower limb (principal); L02.611 Cutaneous abscess of right foot
CPT/HCPCS: 36415; 80053; 83036; 85025; 86140

== ENCOUNTER 2024-07-09 06:41 | Outpatient (CLI) | payer MEDICARE ==
[2024-07-09] MEDS ORDERED: GADOTERATE MEGLUMINE 10 MMOL/20 ML VIAL ONE (07:05)
[2024-07-09] MEDS: GADOTERATE MEGLUMINE 10 MMOL/20 ML VIAL IVP ONE (08:39)
--- NOTE | 2024-07-11 13:34 | MRI Report ---
PROCEDURE: Foot RT W/WO INDICATIONS: R FOOT ABSCESS CONTRAST: CLARISCAN 15.0 ML TECHNIQUE: Noncontrast sagittal T1 spin echo and T2 fast spin echo with fat saturation, long-axis T1 spin echo a nd T2 fast spin echo with fat saturation; short-axis T1 spin echo, proton density fast spin echo, and T2 fast spin echo with fat saturation through the forefoot. Post-contrast short axis, long axis, an d sagittal T1 spin echo with fat saturation through the forefoot. COMPARISON: Right foot radiograph dated 03/01/2021. FINDINGS: Image quality: Excellent. Bones and joints: No suspicious osseous enhancement. No bone marrow contusions or metatarsal stress fractures. Midfoot and forefoot joint osteoarthritic changes are seen with joint space narrowing and subchondral sclerosis. No bony erosion or abnormal periosteal reaction. Soft tissues: Ulceration over dorsal and lateral aspect of fifth metatarsal head is seen. There is raphael bcutaneous soft tissue edema and swelling over dorsal aspect of midfoot and forefoot as well as along lateral aspect of fifth toe near fifth MTP joint. No discrete drainable peripherally enhancing fluid collection is noted. Mild edema involving lateral aspect of plantar foot muscles adjacent to fifth m etatarsal shaft. No intramuscular mass or drainable fluid collection. Extensor and flexor tendons are grossly intact. Principal Lisfranc ligament is intact. IMPRESSION: 1. Cellulitis over dorsal and lateral aspect of midfoot and forefoot with subcutaneous soft tissue ed curtis and swelling. No discrete drainable abscess collection. Shallow ulceration over dorsal and latera l aspect of fifth metatarsal head/MTP joint. 2. No enhancing soft tissue mass. Extensor and flexor tendons are intact. 3. No evidence of osteomyelitis. Midfoot and forefoot joint osteoarthritis. No fracture or dislocatio n. Reviewed by: Hebert Tracey MD on 07/11/2024 1:33 PM PDT Approved by: Hebert Tracey MD on 07/11/2024 1:33 PM PDT Station ID: [id number]
== END 2024-07-09 06:42 | disposition home or self-care (01) ==
LOC: DI 06:41
PROVIDERS: ATTEND Registered Nurse
DX: L03.115 Cellulitis of right lower limb (principal); L02.611 Cutaneous abscess of right foot; L97.519 Non-pressure chronic ulcer of other part of right foot with unspecified severity; M19.071 Primary osteoarthritis, right ankle and foot
CPT/HCPCS: 73720; A9575